=== PATIENT | male | born 1945 | race Caucasian/White ===

== ENCOUNTER 2019-01-13 09:55 | Day surgery (SDC) | payer MEDICARE, OTHER ==
[~2019-01-13] VITALS: Ht 190.5 cm; Wt 96.2 kg
[~2019-01-13 09:55] MED LIST: ALL DAY ALLERGY10 M1 PO; ALLOPURINOL300 MG PO; AMOXICILLIN875 MG PO; ASPIR 8181 MG PO; B-125000 MC1 SL; CALCIUM + VITA1 EACH PO; CARVEDILOL6.25 MG PO; CHLORTHALIDONE25 MG PO; FINASTERIDE5 MG PO; FISH OIL 1,0001 EAC3 PO; FLUOXETINE HCL40 MG PO; FLUTICASONE PRO16 GM NAS; FOLIC ACID1 MG PO; GABAPENTIN600 MG PO; IPRAT-ALBUT 0.5-3 ML INH; MULTI VITAMIN1 EACH PO; NICOTINE PATCH1 EAC1 TD; NYSTATIN100000 UN1 MT; POTASSIUM CITR10 MEQ PO; QUETIAPINE FUMA25 MG PO; SIMVASTATIN10 MG PO; TAMSULOSIN HCL0.4 MG PO; THIAMINE HCL100 MG PO; VENTOLIN HFA18 GM INH; VITAMIN B-6100 MG PO; VITAMIN D2000 UNIT PO
[2019-01-13] MEDS ORDERED: HYDROCODON-ACE1 EA10 PO (13:18)
--- NOTE | 2019-01-13 13:33 | NUR ---
01/13/19 1333 Sheets,Corina 1314 PT ARRIVED TO PACU ON 10 L VIA MASK, O2 SAT 100%. PT BP LOW AND HR DECREASED TO 42, INDIVIDUAL SMALL GROUP INSTRUCTOR AT BEDSIDE AND DOING CHIN THRUST. PT MINIMALLY REACTIVE. RESP EVEN AND UNLABORED BUT DECREASED. 1316 O2 DECREASED TO 6L. 1318 VSS. BP AND HR INCREASED AND PT REACTIVE TO PAINFUL STIMULI. ORAL AND NASAL AIRWAY REMOVED. PT TRYING TO TALK. MD AT BEDSIDE. 1330 PT MORE AWAKE AND TALKING TO RN AND INDIVIDUAL SMALL GROUP INSTRUCTOR. PT ASLEEP OFF AND ON AND SMALL AMOUNT OF SNORING NOTED. PT HR BETWEEEN 49-53.
--- NOTE | 2019-01-14 07:24 | OR ---
[facility] [address] [facility] [place], [place] [address] Signed DATE OF OPERATION: 01/13/2019 SURGEON: Carmela Latham MD PREOPERATIVE DIAGNOSIS: Mucous cyst, right long and small finger. POSTOPERATIVE DIAGNOSIS: Mucous cyst, right long and small finger. PROCEDURE PERFORMED: Cyst removal, right hand x2. PRODUCT MANAGEMENT INTERNSHIP: None. TOURNIQUET TIME: 21 minutes. ANESTHESIA: Trey block per Anesthesia. 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 He already had one that burst through the skin, however this healed uneventfully. He wanted to have the other painful ones removed. Risks and benefits of this were discussed with him. He elected to proceed. DESCRIPTION OF PROCEDURE: Once consent was obtained, he was taken to the operating room. After adequate anesthesia, he was placed on the operating room table. All downside pressure points well padded. The right hand was prepped and draped in a standard sterile fashion. The long finger was approached first. The longitudinal incision was made over the DIP joint, carried through the skin and subcutaneous tissue. The extensor tendon was carefully elevated and the underlying cyst and osteophyte were removed using a rongeur. This was then palpated and found to be completely flushed and was irrigated with antibiotic solution, closed with 3-0 nylon. The ring finger was similarly approached through a dorsal incision, there was much larger cyst on this, and this was removed in its entirety, and the underlying bone spur was removed using the rongeurs and a curette. Wound again was copiously irrigated with antibiotic solution, closed with 3-0 nylon, Electronically Signed By: CARMELA LATHAM MD 01/14/19 0724 PATIENT NAME: CLEO WHITTAKER OPERATIVE REPORT DATE OF : 49 REPORT #: [id number] PHYSICIAN: CARMELA LATHAM MD PCP: DUNCAN CHAMPAGNE PA-C REPORT IS CONFIDENTIAL AND NOT TO BE RELEASED WITHOUT AUTHORIZATION [facility] [address] [place] [address] [place], [place] [address] Signed and dressed with bacitracin, Adaptic, and tube gauze. The fingers were blocked with 0.25% plain Marcaine prior to placing the tube gauze. He was awakened and taken to recovery room in satisfactory condition. All sponge, needle, and instrument counts were correct. Carmela Latham MD BA/MODL /[id number] Copies: ~ Electronically Signed By: CARMELA LATHAM MD 01/14/19 0724 PATIENT NAME: CLEO WHITTAKER OPERATIVE REPORT DATE OF : 49 REPORT #: [id number] PHYSICIAN: CARMELA LATHAM MD PCP: DUNCAN CHAMPAGNE PA-C REPORT IS CONFIDENTIAL AND NOT TO BE RELEASED WITHOUT AUTHORIZATION
== END 2019-01-13 14:20 | disposition home or self-care (01) ==
LOC: DS 09:55 → OPS 09:55 → DS 11:00 → OPS 12:00
PROVIDERS: Specialist
PROC: 0LB70ZZ Excision of Right Hand Tendon, Open Approach (ICD-10-PCS; principal; 2019-01-13 12:00)
DX: M85.641 Other cyst of bone, right hand (principal); G47.33 Obstructive sleep apnea (adult) (pediatric); M10.9 Gout, unspecified; N17.9 Acute kidney failure, unspecified; F17.210 Nicotine dependence, cigarettes, uncomplicated; I25.2 Old myocardial infarction; Z86.73 Personal history of transient ischemic attack (TIA), and cerebral infarction without residual deficits; Z79.899 Other long term (current) drug therapy
CPT/HCPCS: 01830; J0690; J1100; J1885; J2250; J2405; J2704; J2765; J3010; J7120

== ENCOUNTER 2020-09-08 05:55 | Day surgery (SDC) | payer MEDICARE, OTHER ==
[~2020-09-08] VITALS: Ht 188 cm; Wt 110.0 kg
[~2020-09-08 05:55] MED LIST changes: +ASPIR-LOW81 MG PO; +CETIRIZINE HCL10 MG PO; +CIPRO250 MG PO; +DULOXETINE HCL40 MG PO; +HYDROCODON-ACE1 EA10 PO; +MULTI-VITAMIN1 EACH PO; +PERCOCET 5-3251 EACH PO; +SPIRIVA18 MCG INH; +TRIDERM28.4 GM TOP; +VITAMIN C1000 MG PO
--- NOTE | 2020-09-08 08:12 | NUR ---
09/08/20 0812 Corina Panchal 0805 PT ARRIVED TO PACU WITH ORAL AIRWAY IN PLACE AND 6L MASK. JAW THRUST USED OFF AND ON TO MAINTAIN AIRWAY. VSS. 0809 PT REACTIVE TO PAINFUL STIMULI, GRIMACING. AIRWAY REMAINS IN PLACE.
[2020-09-08] MEDS ORDERED: HYDROCODON-ACE1 EA11 PO (08:13)
[2020-09-08] MEDS ORDERED: DICLOFENAC SODI75 MG PO (08:13)
--- NOTE | 2020-09-08 08:42 | NUR ---
ICED WATER GIVEN. SPOUSE AT THE BEDSIDE. CONTINUOUS PULSE OXIMTER IN PLACE.
--- NOTE | 2020-09-08 09:25 | NUR ---
PT TAKEN TO SURGERY, SPOUSE IN RM. NO NEEDS AT THIS TIME,CONTENT TO WAIT IN RM GAVE BLESSING, WILL FOLLOW NEEDED
--- NOTE | 2020-09-08 10:10 | NUR ---
PROVIDED PATIENT WITH DISCHARGE INSTRUCTION. PATIENT ABLE TO URINATE, STEADY ON FEET. DISCUSSED DISCHARGE INSTRUCTION WITH AND PATIENT, ANSWERED QUESTIONS AND CONCERNS. DRESSING C/D/I. NO N/V. PROVIDED WHEELCHAIR RIDE TO FRONT.
--- NOTE | 2020-09-08 10:26 | OR ---
[facility] [address] [place], [place] [address] Signed DATE OF OPERATION: 09/08/2020 SURGEON: Carmela Latham MD PREOPERATIVE DIAGNOSIS: Rotator cuff tear, left. POSTOPERATIVE DIAGNOSIS: Rotator cuff tear, left. PROCEDURE PERFORMED: Left shoulder arthroscopy with rotator cuff repair. MECHANICAL ESTIMATOR: None. ANESTHESIA: General. BLOOD LOSS: Minimal. IMPLANTS: One 4.75 SwiveLock with FiberTape. BRIEF HISTORY: Cleo is a 75-year-old gentleman with pain in his shoulder and weakness. Nonoperative treatment was unsuccessful. MRI showed a tear of the anterior supraspinatus. Risks and benefits of operative treatment were discussed with him. He elected to proceed. DESCRIPTION OF PROCEDURE: Once consent was obtained, he was taken to the operating room. After adequate anesthesia, he was placed in the beach chair position. All downside pressure points were well padded. The left shoulder was prepped and draped in a standard sterile fashion. The shoulder was injected with 15 mL of 0.25% Marcaine with epinephrine as was subacromial space. The standard posterior portal was made and the scope was introduced in the shoulder. ARTHROSCOPIC FINDINGS: Glenohumeral surfaces showed mild chondromalacia of the labrum, biceps and biceps anchor Electronically Signed By: CARMELA LATHAM MD 09/08/20 1026 PATIENT NAME: CLEO WHITTAKER OPERATIVE REPORT DATE OF : 49 REPORT #: [id number] PHYSICIAN: CARMELA LATHAM MD PCP: DUNCAN CHAMPAGNE PA-C REPORT IS CONFIDENTIAL AND NOT TO BE RELEASED WITHOUT AUTHORIZATION [facility] [address] [place], [place] [address] Signed were all intact. Undersurface of the rotator cuff showed about a 1 cm frayed tear that appeared to be full-thickness. I did percutaneously place a spinal needle from the lateral shoulder into the tear to lift it up and visualize it. The scope was then withdrawn, placed in subacromial space and a standard lateral portal was made. We then visualized the subacromial space, which showed a 1 cm tear of the supraspinatus with a longitudinal split. The tendon was in good shape. The undersurface of the acromion was type 1. Diagnostic arthroscopy was undertaken as noted above. The scope was withdrawn and placed in the subacromial space and a lateral portal was established and using the shaver and , we were able to complete the bursectomy. This allowed visualization of the tear, which was then debrided sharply. The bony prominence of the tuberosity was then debrided down to a bleeding bed. The scorpion was then used to place a FiberTape in an inverted mattress configuration through the tear on each side of the longitudinal portion. This was then reduced down to the tuberosity. The 4.75 SwiveLock was then impacted into the tuberosity and seated well, pulling the rotator cuff down into an excellent position on the bony bed. The suture ends were cut. The shoulder was taken through range of motion and found to be stable. The scope was withdrawn. Portals were closed with 3-0 nylon and dressed with appropriate dressing. He tolerated the procedure well. All sponge, needle, and instrument counts were correct. Carmela Latham MD BA/MODL /[id number] Copies: ~ Electronically Signed By: CARMELA LATHAM MD 09/08/20 1026 PATIENT NAME: CLEO WHITTAKER OPERATIVE REPORT DATE OF : 49 REPORT #: [id number] PHYSICIAN: CARMELA LATHAM MD PCP: DUNCAN CHAMPAGNE PA-C REPORT IS CONFIDENTIAL AND NOT TO BE RELEASED WITHOUT AUTHORIZATION
== END 2020-09-08 10:00 | disposition home or self-care (01) ==
LOC: OPS 05:55 → DS 05:55 → OPS 06:45
PROVIDERS: ATTEND Specialist
PROC: 0RHK44Z Insertion of Internal Fixation Device into Left Shoulder Joint, Percutaneous Endoscopic Approach (ICD-10-PCS; 2020-09-08)
PROC: 0LQ24ZZ Repair Left Shoulder Tendon, Percutaneous Endoscopic Approach (ICD-10-PCS; principal; 2020-09-08 06:45)
DX: M75.122 Complete rotator cuff tear or rupture of left shoulder, not specified as traumatic (principal); M94.212 Chondromalacia, left shoulder; M75.42 Impingement syndrome of left shoulder; I10 Essential (primary) hypertension; K21.9 Gastro-esophageal reflux disease without esophagitis; G47.33 Obstructive sleep apnea (adult) (pediatric); Z79.899 Other long term (current) drug therapy; Z79.82 Long term (current) use of aspirin; Z88.1 Allergy status to other antibiotic agents; Z87.891 Personal history of nicotine dependence; Z87.442 Personal history of urinary calculi
CPT/HCPCS: 64415; 76942; C1713; J0690; J1100; J1885; J2001; J2250; J2405; J2704; J2795; J3010; J7121

== ENCOUNTER 2025-03-18 07:27 | Day surgery (SDC) | payer MEDICARE, OTHER ==
[~2025-03-18] VITALS: Ht 188 cm; Wt 111.4 kg
[~2025-03-18 07:27] MED LIST changes: +CEFAZOLIN SODIUM 2 GM/20 ML SYR IV SCH; +DICLOFENAC SODI75 MG PO; +HYDROCODON-ACE1 EA11 PO; +IBLOOD GLUCOSE TEST STRIP 1 EA TEST VI PRN; +LACTATED RINGER'S 1,000 ML IV SCH; +LIDOCAINE HCL 1% 5 ML SDV INJ ONE
[2025-03-18 07:51] VITALS: BP 146/64
[2025-03-18] MEDS ORDERED: LIDOCAINE HCL 2% 5 ML SDV ONE (08:03)
[2025-03-18] MEDS ORDERED: Ropivacaine HCl 0.5% 30 ML VIAL ONE (08:03)
[2025-03-18] MEDS ORDERED: propofoL 200 MG/20 ML VIAL ONE (08:03)
[2025-03-18] MEDS ORDERED: DEXAMETHASONE SOD PHOS 4 MG/ML VIAL ONE (08:03)
[2025-03-18] MEDS ORDERED: STIOLTO RESPIMAT4 G1 INH (08:11)
[2025-03-18] MEDS ORDERED: CO Q-10300 MG PO (08:16)
[2025-03-18] MEDS ORDERED: MIDAZOLAM HCL 2 MG/2 ML VIAL ONE (08:26)
[2025-03-18] MEDS ORDERED: ondansetron HCL 4 MG/2 ML VIAL IV PRN (09:15)
[2025-03-18] MEDS ORDERED: PROCHLORPERAZINE EDISYLATE 10 MG/2 ML VIAL IV PRN (09:15)
[2025-03-18] MEDS ORDERED: IBLOOD GLUCOSE TEST STRIP 1 EA TEST VI PRN (09:15)
[2025-03-18] MEDS ORDERED: fentaNYL citrate 50 MCG/ML SDV IV PRN (09:15)
[2025-03-18] MEDS ORDERED: NALOXONE HCL 0.4 MG SYR IV PRN (09:15)
[2025-03-18] MEDS ORDERED: HYDROCODONE/ACETA 5/325 TAB PO PRN (09:30)
[2025-03-18] MEDS ORDERED: HYDROCODON-ACE1 EA10 PO (09:48)
--- NOTE | 2025-03-18 10:00 | NUR ---
03/18/25 1000 Lina Good 0946-PT ARRIVES TO PACU VIA STRETCHER, RESTING SEMI FOWLERS, PT REACTIVE TO STIMULI BUT RESTS W/ EYES CLOSED, VSS ON 6L VIA MASK, RR EVEN AND UNLABORED. PT'S RT HAND ELEVATED ON PILLOW AND ICE PACK APPLIED. 09-PT AWAKENS TO VOICE, TITRATED TO RA, PT DENIES PAIN OR NAUSEA, VS REMAIN STABLE.
[2025-03-18 13:53] VITALS: BP 146/84
--- NOTE | 2025-03-21 07:13 | OR ---
[facility] [address] [place], [place] [address] Signed DATE OF OPERATION: 03/18/2025 SURGEON: Carmela Latham MD PREOPERATIVE DIAGNOSIS: Mucous cyst, right small finger. POSTOPERATIVE DIAGNOSIS: Mucous cyst, right small finger. PROCEDURE PERFORMED: Excision of mucous cyst, right small finger. SENIOR EDUCATION SPECIALIST: None. ANESTHESIA: Sedation. BRIEF HISTORY: Cleo is a 80-year-old gentleman with a large mucous cyst on the DIP joint of his small finger. This was painful and getting larger and he wished to have it removed. Risks, benefits, and alternatives of surgery were discussed with him. He elected to proceed. DESCRIPTION OF PROCEDURE: Once consent was obtained, he was taken to the operating room. After adequate anesthesia, he was left of the surgical bed in hand table was brought in. The hand was prepped and draped in a standard sterile fashion. A finger tourniquet was fashioned out of above the finger. This was rolled proximally and 1 cm incision was made overlying the cyst. Dissection medially and laterally was undertaken and the cyst was removed using a rongeur. The underlying osteophyte was removed as well. As near complete excision as we could was undertaken. This was then copiously irrigated with normal saline, closed with 3-0 nylon and dressed with Adaptic and gauze with a tube gauze dressing. The correction tube gauze bandage. The patient was awakened, taken to the recovery room in satisfactory condition. All sponge, needle, and instrument counts were correct. Electronically Signed By: CARMELA LATHAM MD 03/21/25 0713 PATIENT NAME: CLEO WHITTAKER OPERATIVE REPORT DATE OF : 49 REPORT #: [id number] PHYSICIAN: CARMELA LATHAM MD PCP: DUNCAN CHAMPAGNE PA-C REPORT IS CONFIDENTIAL AND NOT TO BE RELEASED WITHOUT AUTHORIZATION [address] [place] [address] Signed Carmela Latham MD BA/MILOL /[id number] Copies: ~ Electronically Signed By: CARMELA LATHAM MD 03/21/25 0713 PATIENT NAME: CLEO WHITTAKER OPERATIVE REPORT DATE OF : 49 REPORT #: [id number] PHYSICIAN: CARMELA LATHAM MD PCP: DUNCAN CHAMPAGNE PA-C REPORT IS CONFIDENTIAL AND NOT TO BE RELEASED WITHOUT AUTHORIZATION
== END 2025-03-18 11:05 | disposition home or self-care (01) ==
LOC: DS 07:27
PROVIDERS: ATTEND Specialist
PROC: 0LB70ZZ Excision of Right Hand Tendon, Open Approach (ICD-10-PCS; principal; 2025-03-18 09:30)
DX: M25.841 Other specified joint disorders, right hand (principal); G89.18 Other acute postprocedural pain; I10 Essential (primary) hypertension; I25.10 Atherosclerotic heart disease of native coronary artery without angina pectoris; Z79.899 Other long term (current) drug therapy; Z88.1 Allergy status to other antibiotic agents
CPT/HCPCS: 01810; 64415; 64450; 76942; J0690; J1100; J2003; J2250; J2704; J2795; J7121